=== PATIENT | male | born 1965 | race Caucasian/White ===

== ENCOUNTER 2016-11-13 06:33 | Day surgery (SDC) | payer OTHER ==
[2016-11-13] MEDS ORDERED: SUCCINYLCHOLINE CHLORIDE*ANESTHESIA ONLY*200 MG/10 ML SYR IVP ONE (08:13)
[2016-11-13] MEDS ORDERED: PROPOFOL/EMULSION 500 MG/50 ML BOTTLE IV ONE (08:13)
[2016-11-13] MEDS ORDERED: fentaNYL 250 MCG/5 ML INJ ONE (08:16)
[2016-11-13] MEDS ORDERED: SUGAMMADEX SODIUM 200 MG/2 ML VIAL IVP ONE (08:32)
--- NOTE | 2016-11-13 09:12 | GPN ---
PREPROCEDURE DIAGNOSIS: History of esophageal varices. POSTPROCEDURE DIAGNOSES: 1. Esophagitis. 2. Portal hypertensive gastropathy. 3. Nodular ulceration in the gastric antrum, status post biopsy with cold biopsy forceps. PROCEDURE: Esophagogastroduodenoscopy with biopsies. MEDICATIONS: General anesthesia. INDICATIONS: The patient is a 51-year-old gentleman with a history of DELVALLE cirrhosis who developed esophageal variceal bleeding. He is being seen by us in followup for HCC surveillance of esophageal varices. DESCRIPTION OF PROCEDURE: The end-viewing endoscope was inserted into the esophagus, into the stoma ch, and second portion of the duodenum. The esophagus showed eradication of esophageal varices at t he GE junction. He does have moderate esophagitis at the GE junction, LA grade class B. The GE nate ction is located at 35 cm from the incisors. He has moderate portal hypertensive gastropathy throug hout the stomach. No gastric varices were seen on retroflexion. A 1.5 cm nodular area was seen in the gastric antrum along the pyloric channel between the 12 o'clock and 2 o'clock position. The les ion appeared benign and likely reflected nodular gastritis; however, biopsies were taken using cold biopsy forceps to exclude malignancy and also to evaluate for Helicobacter pylori. The duodenal sec ond portion was normal. No banding was done. IMPRESSION: 1. Eradication of esophageal varices. 2. Esophagitis at the gastroesophageal junction. 3. Moderate portal hypertensive gastropathy. 4. Likely nodular gastritis in the gastric antrum, status post biopsies. RECOMMENDATIONS: 1. Discharge home with escort. 2. Resume previous medications. 3. Continue omeprazole 20 mg orally daily indefinitely. 4. Further recommendations regarding repeat upper endoscopy based on pathology results; however, if the biopsy results of the nodular area in the gastric antrum are benign, I recommend a repeat EGD a [facility] with general anesthesia in 1 year for surveillance of esophageal varices. 5. Follow up with Dr. Burnette as previously scheduled for DELVALLE liver cirrhosis. Thank you for allowing me to participate in the care of your patient. Please do not hesitate to hillary l with questions. /[id number]/MODL
== END 2016-11-13 10:15 | disposition home or self-care (01) ==
LOC: FSGY 06:33
PROVIDERS: ATTEND Internal Medicine Gastroenterology
PROC: 0DB68ZX Excision of Stomach, Via Natural or Artificial Opening Endoscopic, Diagnostic (ICD-10-PCS; principal; 2016-11-13 08:15)
DX: K20.8 Other esophagitis (principal); K31.89 Other diseases of stomach and duodenum; Z87.19 Personal history of other diseases of the digestive system; K75.81 Nonalcoholic steatohepatitis (NASH); E66.9 Obesity, unspecified; Z68.41 Body mass index [BMI] 40.0-44.9, adult
CPT/HCPCS: J0330; J2704; J3010